=== PATIENT | male | born 1945 | race Caucasian/White ===

== ENCOUNTER 2020-12-15 08:44 | Outpatient (CLI) | payer OTHER | END 2020-12-15 08:59 | disposition home or self-care (01) | LOC: RX STUDY 08:44 | PROVIDERS: ATTEND Internal Medicine Gastroenterology | DX: K44.9 Diaphragmatic hernia without obstruction or gangrene (principal); K57.30 Diverticulosis of large intestine without perforation or abscess without bleeding; K63.5 Polyp of colon; K31.7 Polyp of stomach and duodenum; D50.8 Other iron deficiency anemias ==

== ENCOUNTER 2021-01-03 08:56 | Outpatient (CLI) | payer OTHER | END 2021-01-03 09:02 | disposition home or self-care (01) | LOC: SONOGRAMA 08:56 → MAMO-SONO 09:15 | PROVIDERS: ATTEND Urology | DX: N40.1 Benign prostatic hyperplasia with lower urinary tract symptoms (principal); R97.20 Elevated prostate specific antigen [PSA] ==

== ENCOUNTER 2021-02-04 19:53 | Emergency (ER) | payer OTHER ==
[~2021-02-04] VITALS: Ht 180.3 cm; Wt 70.3 kg
== END 2021-02-04 23:49 | disposition home or self-care (01) ==
LOC: ER 19:53
DX: R10.13 Epigastric pain (principal); T50.B95A Adverse effect of other viral vaccines, initial encounter; Y92.89 Other specified places as the place of occurrence of the external cause

== ENCOUNTER 2021-08-18 08:35 | Outpatient (CLI) | payer OTHER | END 2021-08-18 08:40 | disposition home or self-care (01) | LOC: RAD 08:35 | PROVIDERS: ATTEND Urology | DX: N99.115 Postprocedural fossa navicularis urethral stricture (principal); R97.20 Elevated prostate specific antigen [PSA] ==